=== PATIENT | male | born 1970 | race African-American/Black ===

== ENCOUNTER 2017-03-09 14:10 | Emergency (ER) | payer OTHER ==
[~2017-03-09 14:10] MED LIST: B/P MED; NO MEDICATIONS
== END 2017-03-09 14:40 | disposition home or self-care (01) ==
LOC: SED 14:10
DX: S10.91XA Abrasion of unspecified part of neck, initial encounter (principal); S20.411A Abrasion of right back wall of thorax, initial encounter; I10 Essential (primary) hypertension; R51 Headache; Z88.5 Allergy status to narcotic agent; W22.8XXA Striking against or struck by other objects, initial encounter; Y92.009 Unspecified place in unspecified non-institutional (private) residence as the place of occurrence of the external cause
CPT/HCPCS: 99283